=== PATIENT | female | born 1980 | race Caucasian/White ===

== ENCOUNTER 2019-12-10 17:57 | Emergency (ER) | payer MEDICAID, SELFPAY ==
[~2019-12-10] VITALS: Ht 157.5 cm; Wt 72.6 kg
[2019-12-10 17:59] VITALS: Ht 157.5 cm; Wt 72.6 kg
[2019-12-10 20:02] VITALS: BP 103/75
== END 2019-12-10 20:02 | disposition home or self-care (01) ==
LOC: EDBD 17:57 → ED 17:57
DX: J18.9 Pneumonia, unspecified organism (principal)
CPT/HCPCS: Q0092; U0003-CS